=== PATIENT | male | born 1945 | race Two or more races ===

== ENCOUNTER 2019-12-23 18:50 | Emergency (ER) | payer MEDICAID ==
[~2019-12-23] VITALS: Ht 165.1 cm; Wt 78.9 kg
--- NOTE | 2019-12-23 19:10 | NUR ---
BIB [facility] C/O SOB AND FEVER SINCE LAST NIGHT. ALERT AND ORIENTED X3 IN HIS [place] LANGUAGE. FAMILY AT BEDSIDE. BREATHING EVEN AND UNLABORED WITH NO DISTRESS NOTED. ON O2 VIA NC AT 2LPM SATURATING WELL. WAITING TO BE SEEN BY .
--- NOTE | 2019-12-23 19:20 | NUR ---
XRAY AT BEDSIDE
[2019-12-23] MEDS ORDERED: ALBUTEROL FS 2.5 MG/0.5 ML VIAL.NEB NEB ONE (19:30)
[2019-12-23 19:37] LABS: BASOPHILS % (AUTO) 0.3 % (0.0-2.0); EOSINOPHILS % (AUTO) 0.5 % (0.0-6.0); HEMATOCRIT 43 % (39-51); HEMOGLOBIN 14.4 g/dL (13.5-17.5); LYMPHOCYTES # (AUTO) 0.4 /CMM (0.8-4.8); LYMPHOCYTES % (AUTO) 2.7 % (20.0-44.0); MEAN CORPUSCULAR HGB CONC 33 g/dl (31.0-36.0); MEAN CORPUSCULAR VOLUME 87 fL (80-96); MONOCYTES # (AUTO) 1.1 /CMM (0.1-1.30); MONOCYTES % (AUTO) 7.4 % (2.0-12.0); NEUTROPHILS % (AUTO) 89.1 % (43.0-81.0); PLATELET COUNT (AUTO) 289 /CMM (150-450); WHITE BLOOD COUNT (AUTO) 14.6 K/uL (4.3-11.0)
[2019-12-23] MEDS ORDERED: ALBUTEROL FS 2.5 MG/0.5 ML VIAL.NEB ONE (19:40)
[2019-12-23 19:54] LABS: CALCIUM, SERUM 8.7 mg/dL (8.5-10.1); CARBON DIOXIDE 24 mmol/L (21-32); CHLORIDE 106 mmol/L (98-107); CREATININE 0.9 mg/dL (0.6-1.3); GLUCOSE 113 mg/dL (74-106); POTASSIUM 4.2 mmol/L (3.5-5.1); SODIUM SERUM 140 mmol/L (136-145); UREA NITROGEN, BLOOD 20 mg/dL (7-18)
[2019-12-23 20:07] LABS: ALANINE AMINOTRANSFERASE 16 U/L (12-78); ALBUMIN 3.4 g/dL (3.4-5.0); ALKALINE PHOSPHATASE 75 U/L (46-116); ASPARTATE AMINOTRANSFERASE 23 U/L (15-37); B-TYPE NATRIURETIC PEPTIDE 439 PG/ML (0-125); BILIRUBIN,DIRECT 0.1 mg/dL (0.0-0.2); BILIRUBIN,TOTAL 0.3 mg/dL (0.2-1.0); TOTAL PROTEIN, SERUM 7.1 g/dL (6.4-8.2)
[2019-12-23] MEDS ORDERED: LEVOFLOXACIN (500MG) 500 MG TABLET PO ONE (20:30)
[2019-12-23] MEDS ORDERED: CEFTRIAXONE 1GM BAG (ER ONLY) 50 ML IV ONE ×2 (20:30→20:41)
[2019-12-23] MEDS ORDERED: LEVOFLOXACIN (500MG) 500 MG TABLET ONE (20:41)
--- NOTE | 2019-12-23 21:43 | NUR ---
SALEEM GRACE TALKING TO DR. CHRISTENSEN FROM [facility] REGARDING PT.
[2019-12-23 21:59] VITALS: BP 124/68
--- NOTE | 2019-12-23 21:59 | NUR ---
Patient discharged to home in stable condition. Written and verbal after care instructions given. Patient verbalizes understanding of instruction.IV removed. Catheter intact and site benign. Pressure and 4x4 applied to site. No bleeding noted.
== END 2019-12-23 22:00 | disposition home or self-care (01) ==
LOC: ER 18:54
DX: J18.9 Pneumonia, unspecified organism (principal); I10 Essential (primary) hypertension
CPT/HCPCS: 36415; 71045; 80048; 80076; 83605; 83880; 84484; 85025; 85730; 87040 ×2; 87420; 87804 ×2; 93005; 94640; 96365; 99285; J0696

== ENCOUNTER 2025-05-16 22:46 | Inpatient (IN) | payer MEDICARE, OTHER ==
[~2025-05-16] VITALS: Ht 190.5 cm; Wt 87.1 kg
[2025-05-16] MEDS: IPRATROPIUM NEB FS 0.5 MG/2.5 ML AMPUL.NEB NEB ONE (23:00)
[2025-05-16] MEDS: ALBUTEROL FS 2.5 MG/3 ML VIAL.NEB CONTNEB ONE (23:00)
[2025-05-16 23:14] LABS: PLATELET COUNT (AUTO) 302 K/uL (150-450); RED BLOOD CELL COUNT(AUTO) 5.33 MIL/uL (4.5-6.0); RED CELL DISTRIBUTION WIDTH 14.4 % (11.5-15.0); WHITE BLOOD COUNT (AUTO) 19.4 K/uL (4.3-11.0)
[2025-05-16 23:25] LABS: CALCIUM, SERUM 8.5 mg/dL (8.5-10.1); CREATININE 1.4 mg/dL (0.6-1.3); SODIUM SERUM 140 mmol/L (136-145); UREA NITROGEN, BLOOD 33 mg/dL (7-18)
[2025-05-16 23:34] LABS: LACTIC ACID 3.9 mmol/L (0.4-2.0)
[2025-05-16 23:35] LABS: ASPARTATE AMINOTRANSFERASE 14 U/L (15-37); NT-PRO BNP 198 pg/mL (0-125); TOTAL PROTEIN, SERUM 7.4 g/dL (6.4-8.2)
[2025-05-16 23:35] LABS: APPEARANCE,URINE CLEAR (CLEAR); BLOOD, URINE 2+ Ery/uL (NEGATIVE); LEUKOCYTE ESTERASE ,URINE TRACE (NEGATIVE); NITRITE, URINE NEGATIVE (NEGATIVE); UGLUCOSE NEGATIVE (NEGATIVE)
[2025-05-16 23:36] LABS: ADD URINE CULTURE NO; SQUAMOUS EPITHELIAL CELL,UR Few /HPF (None Seen)
[2025-05-16] MEDS ORDERED: ALBUTEROL FS 2.5 MG/3 ML VIAL.NEB ONE (23:36)
[2025-05-16] MEDS ORDERED: IPRATROPIUM NEB FS 0.5 MG/2.5 ML AMPUL.NEB ONE (23:36)
[2025-05-16] MEDS ORDERED: PIPERACI/TAZO 3.375GM/D5W 50ML PB IV ONE (23:47)
[2025-05-16] MEDS: PIPERACILLIN /TAZOBACTAM 3.375 G in IV D5W 50 ML IV ONE (23:54)
[2025-05-17] VITALS (15 sets, daily range): BP systolic 117–151; BP diastolic 51–59; TEMP 97.5–99.1; O2SAT 92–100
[2025-05-17 00:04] LABS: INR 1.02 (0.91-1.10)
[2025-05-17 00:22] LABS: ABG BASE EXCESS -2.4 mmol/L (-2.0-3.0); ABG OXYGEN SATURATION 98.6 % (94.0-98.0); ABG PCO2 33.6 mmHg (35.0-48.0); ABG PH 7.419 (7.350-7.450); ABG PO2 133.4 mmHg (83.0-108.0); ABG TOTAL HEMOGLOBIN 14.8 G/dL (13.5-17.5); FRACTIONATED INSPIRED OXYGEN 60.0 %; SET RATE, BG 16.0; SITE, ABG RIGHT RADIAL
[2025-05-17] MEDS ORDERED: ACETAMINOPHEN 325 MG TABLET PO PRN (01:30)
[2025-05-17] MEDS ORDERED: CETI-194 PO (02:01)
[2025-05-17] MEDS ORDERED: OMEP20CA15 PO (02:01)
[2025-05-17] MEDS ORDERED: ATOR40TA PO (02:01)
[2025-05-17] MEDS ORDERED: TAMS-12 PO (02:01)
[2025-05-17] MEDS ORDERED: FAMO40TA7 PO (02:01)
[2025-05-17] MEDS ORDERED: ASPI-1420 PO (02:01)
[2025-05-17] MEDS ORDERED: DESL5TAB42 PO (02:01)
[2025-05-17] MEDS ORDERED: DIPH25TA25 PO (02:01)
[2025-05-17] MEDS ORDERED: OLME1TAB88 PO (02:01)
[2025-05-17] MEDS ORDERED: BUME1TAB8 PO (02:01)
[2025-05-17] MEDS ORDERED: POTA8TAB3 PO (02:01)
[2025-05-17] MEDS ORDERED: MONT10TA22 PO (02:01)
[2025-05-17] MEDS ORDERED: LEVO5TAB13 PO (02:01)
[2025-05-17] MEDS ORDERED: TRAZ-182 PO (02:01)
[2025-05-17] MEDS ORDERED: ALBU1.257 NEB (02:01)
[2025-05-17] MEDS ORDERED: HYDR50SY PO (02:01)
[2025-05-17 02:33] LABS: LACTIC ACID REFLEX 2.6 mmol/L (0.4-1.9)
[2025-05-17] MEDS ORDERED: AZITHROMYCIN 500 MG VIAL ONE (05:39)
[2025-05-17] MEDS: AZITHROMYCIN 500 MG in IV D5W 250 ML IV ONE (05:55)
[2025-05-17] MEDS ORDERED: PIPERACILLIN /TAZOBACTAM 3.375 G in IV D5W 50 ML IV ONE (06:00)
[2025-05-17] MEDS: ALBUTEROL FS 2.5 MG/0.5 ML VIAL.NEB NEB SCH ×2 (08:16→12:02)
[2025-05-17] MEDS: IPRATROPIUM NEB FS 0.5 MG/2.5 ML AMPUL.NEB NEB SCH ×2 (08:16→12:02)
[2025-05-17] MEDS: PANTOPRAZOLE 40 MG VIAL IV SCH (09:10)
[2025-05-17] MEDS ORDERED: ALBU2.5V38 IH (09:13)
[2025-05-17] MEDS ORDERED: DESL5TAB PO (09:13)
[2025-05-17] MEDS: ENOXAPARIN SODIUM 40 MG/0.4 ML DISP.SYRIN SQ SCH (09:13)
[2025-05-17] MEDS ORDERED: HYDR-500 PO (09:13)
[2025-05-17] MEDS: PIPERACILLIN /TAZOBACTAM 3.375 G in IV D5W 100 ML IV SCH (09:14)
[2025-05-17 09:28] LABS: CALCIUM, SERUM 8.4 mg/dL (8.5-10.1); CREATININE 1.6 mg/dL (0.6-1.3); PHOSPHORUS 3.1 mg/dL (2.5-4.9); SODIUM SERUM 138.0 mmol/L (136-145); UREA NITROGEN, BLOOD 38.0 mg/dL (7-18)
[2025-05-17 09:29] LABS: PLATELET COUNT (AUTO) 266 K/uL (150-450); RED BLOOD CELL COUNT(AUTO) 5.15 MIL/uL (4.5-6.0); RED CELL DISTRIBUTION WIDTH 14.8 % (11.5-15.0); WHITE BLOOD COUNT (AUTO) 16.0 K/uL (4.3-11.0)
[2025-05-17] MEDS ORDERED: PIPERACILLIN /TAZOBACTAM 3.375 G in IV D5W 50 ML IV SCH (13:00)
[2025-05-17] MEDS: ALBUTEROL HALF STRENGTH 1.25 MG/3 ML VIAL.NEB NEB SCH (15:47)
[2025-05-18] VITALS (18 sets, daily range): BP systolic 91–130; BP diastolic 51–117; TEMP 97.7–98.9; O2SAT 93–100
[2025-05-18 06:42] LABS: LDL 83 mg/dL (0-99)
[2025-05-18 06:43] LABS: PLATELET COUNT (AUTO) 283 K/uL (150-450); RED BLOOD CELL COUNT(AUTO) 4.67 MIL/uL (4.5-6.0); RED CELL DISTRIBUTION WIDTH 14.7 % (11.5-15.0); WHITE BLOOD COUNT (AUTO) 16.9 K/uL (4.3-11.0)
[2025-05-18 06:51] LABS: CALCIUM, SERUM 8.4 mg/dL (8.5-10.1); CREATININE 1.6 mg/dL (0.6-1.3); PHOSPHORUS 3.7 mg/dL (2.5-4.9); SODIUM SERUM 141 mmol/L (136-145); UREA NITROGEN, BLOOD 41 mg/dL (7-18)
[2025-05-18] MEDS ORDERED: OMEPRAZOLE 20 MG CAPSULE.DR PO PRN (08:30)
[2025-05-18] MEDS: MONTELUKAST SODIUM (10MG) 10 MG TABLET PO SCH (09:23)
[2025-05-18] MEDS: ASPIRIN EC 81 MG TABLET.DR PO SCH (09:24)
[2025-05-18] MEDS: ATORVASTATIN 40 MG TABLET PO SCH (09:24)
[2025-05-18] MEDS: cetrizine 10 MG TABLET PO SCH (09:24)
[2025-05-18] MEDS: TAMSULOSIN 0.4 MG CAP.SR.24H PO SCH (09:24)
[2025-05-18] MEDS: BUMETANIDE (1 MG) 1 MG TABLET PO SCH (09:24)
[2025-05-18 10:07] LABS: FOLIC ACID 14.8 ng/mL (>3.0)
[2025-05-18] MEDS: AZITHROMYCIN 500 MG in IV D5W 250 ML IV SCH (12:12)
[2025-05-18] MEDS ORDERED: Medication Not On Formulary EA (Levocetirizine Dihydrochloride 5 MG) PO SCH (18:00)
[2025-05-18] MEDS: TRAZODONE 50 MG TABLET PO SCH (21:16)
[2025-05-19] VITALS (17 sets, daily range): BP systolic 105–186; BP diastolic 38–74; TEMP 98–98.2; O2SAT 92–99
[2025-05-19 07:18] LABS: RED BLOOD CELL COUNT(AUTO) 4.63 MIL/uL (4.5-6.0); WHITE BLOOD COUNT (AUTO) 14.9 K/uL (4.3-11.0)
[2025-05-19 07:19] LABS: PLATELET COUNT (AUTO) 293 K/uL (150-450)
[2025-05-19] MEDS ORDERED: PANTOPRAZOLE 40 MG TABLET.DR PO SCH (07:30)
[2025-05-19 08:34] LABS: SODIUM SERUM 143 mmol/L (136-145)
[2025-05-19 08:35] LABS: CALCIUM, SERUM 8.1 mg/dL (8.5-10.1); CREATININE 1.6 mg/dL (0.6-1.3); UREA NITROGEN, BLOOD 47 mg/dL (7-18)
[2025-05-19 08:36] LABS: PHOSPHORUS 4.3 mg/dL (2.5-4.9)
[2025-05-19] MEDS: PANTOPRAZOLE 40 MG TABLET.DR PO SCH (08:38)
[2025-05-19] MEDS: MAGNESIUM HYDROXIDE 30 ML UDC PO PRN (17:24)
[2025-05-19] MEDS: MAG HYDROX/AL HYDROX/SIMETH 30 ML UDC PO PRN (20:14)
[2025-05-19] MEDS ORDERED: hydrALAZINE HCL IV 20 MG VIAL IV PRN (21:00)
[2025-05-19] MEDS: hydrALAZINE HCL IV 20 MG VIAL IV PRN (21:07)
[2025-05-19] MEDS: MORPHINE SULFATE INJ 4 MG/ML DISP.SYRIN IV PRN (23:45)
[2025-05-19] MEDS: ONDANSETRON HCL/PF 4 MG/2 ML VIAL IVP PRN (23:45)
[2025-05-20] VITALS (14 sets, daily range): BP systolic 129–157; BP diastolic 49–67; TEMP 97.7–98.7; O2SAT 92–96
[2025-05-20 06:50] LABS: PLATELET COUNT (AUTO) 317 K/uL (150-450); RED BLOOD CELL COUNT(AUTO) 4.77 MIL/uL (4.5-6.0); RED CELL DISTRIBUTION WIDTH 14.8 % (11.5-15.0); WHITE BLOOD COUNT (AUTO) 15.4 K/uL (4.3-11.0)
[2025-05-20 06:59] LABS: CALCIUM, SERUM 7.9 mg/dL (8.5-10.1); CREATININE 1.4 mg/dL (0.6-1.3); PHOSPHORUS 4.2 mg/dL (2.5-4.9); SODIUM SERUM 143.0 mmol/L (136-145); UREA NITROGEN, BLOOD 46.0 mg/dL (7-18)
[2025-05-20] MEDS ORDERED: METH4TAB3 PO (08:13)
[2025-05-20] MEDS ORDERED: FLUT1BLS6 IH (08:13)
[2025-05-20] MEDS ORDERED: ALBU8.5H8 INH (08:13)
[2025-05-21] VITALS (7 sets, daily range): BP systolic 140–154; BP diastolic 44–80; TEMP 97.9–98.8; O2SAT 91–99
[2025-05-21 03:07] LABS: VITAMIN B1 THIAMINE,WB 128.1 nmol/L (66.5-200.0)
[2025-05-21 06:41] LABS: PLATELET COUNT (AUTO) 290 K/uL (150-450); RED BLOOD CELL COUNT(AUTO) 5.25 MIL/uL (4.5-6.0); RED CELL DISTRIBUTION WIDTH 14.7 % (11.5-15.0); WHITE BLOOD COUNT (AUTO) 14.0 K/uL (4.3-11.0)
[2025-05-21 07:09] LABS: CALCIUM, SERUM 8.2 mg/dL (8.5-10.1); CREATININE 1.4 mg/dL (0.6-1.3); PHOSPHORUS 4.6 mg/dL (2.5-4.9); SODIUM SERUM 145.0 mmol/L (136-145); UREA NITROGEN, BLOOD 48.0 mg/dL (7-18)
[2025-05-21] MEDS ORDERED: HYDR-3972 PO (14:35)
[2025-05-21] MEDS: HYDROCODONE/APAP 10/325MG TABLET PO PRN (14:36)
[2025-05-21] MEDS ORDERED: AMOX-430 PO (16:26)
[2025-05-27 22:06] LABS: METHYLMALONIC ACID 567.0 nmol/L (0-378)
== END 2025-05-21 15:29 | disposition home health service (06) | DRG 871 ==
LOC: ER 22:48 → ICU 05-17 01:14 → TELE-TD 05-17 02:44 → TELE1 05-17 09:37 → MEDSG1 05-20 09:26
PROVIDERS: ATTEND Nurse Practitioner Acute Care
PROC: 5A09357 Assistance with Respiratory Ventilation, Less than 24 Consecutive Hours, Continuous Positive Airway Pressure (ICD-10-PCS; principal; 2025-05-17)
DX: A41.50 Gram-negative sepsis, unspecified (principal); J96.21 Acute and chronic respiratory failure with hypoxia; N17.0 Acute kidney failure with tubular necrosis; J44.1 Chronic obstructive pulmonary disease with (acute) exacerbation; I50.32 Chronic diastolic (congestive) heart failure; I13.0 Hypertensive heart and chronic kidney disease with heart failure and stage 1 through stage 4 chronic kidney disease, or unspecified chronic kidney disease; N39.0 Urinary tract infection, site not specified; E87.20 Acidosis, unspecified; Z20.822 Contact with and (suspected) exposure to COVID-19; N18.9 Chronic kidney disease, unspecified; N40.0 Benign prostatic hyperplasia without lower urinary tract symptoms; Z87.891 Personal history of nicotine dependence; Z79.82 Long term (current) use of aspirin; Z79.899 Other long term (current) drug therapy; Z79.51 Long term (current) use of inhaled steroids; E78.5 Hyperlipidemia, unspecified; T38.0X5A Adverse effect of glucocorticoids and synthetic analogues, initial encounter; Y92.9 Unspecified place or not applicable; Z99.81 Dependence on supplemental oxygen; K44.9 Diaphragmatic hernia without obstruction or gangrene; K42.9 Umbilical hernia without obstruction or gangrene; G89.29 Other chronic pain; D64.9 Anemia, unspecified; G47.33 Obstructive sleep apnea (adult) (pediatric); B96.20 Unspecified Escherichia coli [E. coli] as the cause of diseases classified elsewhere
CPT/HCPCS: 36415; 36600; 70450-TC; 71045-TC; 76770-TC; 80048-TC; 80053-TC; 80061-TC; 81001; 82248-TC; 82607-TC; 82803-TC; 83605-TC; 83735-TC; 83880; 83921; 84100-TC; 84425; 84443-TC; 84484-TC; 85025-TC; 85730-TC; 87040-TC; 87081-TC; 87086-TC; 87186-TC; 93307-TC; 93970-TC; 94799-TC; 97110-TC; 97116-TC; 97530-TC; A4223; G0378; J0360; J0456; J1650; J2270; J2405; J2470; J2543; J2919; J7040; J7050; J7060; Q0163; Q0177